=== PATIENT | female | born 1960 | race Caucasian/White ===

== ENCOUNTER 2016-06-12 21:25 | Emergency (ER) | payer OTHER, BC ==
[~2016-06-12] VITALS: Ht 160 cm; Wt 81.6 kg
[2016-06-12 21:25] VITALS: BP 182/103; PULSE 82; RESP 20; TEMP 98.1; O2SAT 99
[~2016-06-12 21:25] MED LIST: CORCR20; LIP20
--- NOTE | 2016-06-12 21:26 | NUR ---
Patient to ER bed 8 to gown for evaluation. Side rails up. Report given to HA MARTIN.
--- NOTE | 2016-06-12 21:35 | NUR ---
Patient to ER C/O left ear pain 7/10 for the past week. Patient states that she is recovering from cold like symptoms for the past week. AAOx4, unlabored rbeathing, no signs of acute distress.
--- NOTE | 2016-06-12 21:40 | NUR ---
KEESHA VERDUGO LEAD ESTHETICIAN at bedside examining patient.
[2016-06-12] MEDS ORDERED: KETOROLAC TROMETHAMINE 30 MG VIAL IVP ONE (22:00)
[2016-06-12] MEDS ORDERED: NACL 0.9% 1,000 ML IV ONE (22:00)
[2016-06-12] MEDS ORDERED: MECLIZINE HCL 25 MG TABLET (ANITVERT) PO ONE (22:00)
[2016-06-12] MEDS ORDERED: ONDANSETRON 4 MG ODT TAB PO ONE (22:00)
--- NOTE | 2016-06-12 22:00 | NUR ---
# 20 gauge angiocath placed to LEFT AC. Use of asceptic technique. Opsite placed over site. Blood return noted. Flushed with 10 cc of normal saline. No evidence of infiltration noted. Patient tolerated well.
[2016-06-12] MEDS ORDERED: AMOXICILLIN/CLAVULANATE POTASSIUM 875 MG TABLET PO ONE (22:15)
--- NOTE | 2016-06-12 22:49 | NUR ---
Patient states that she feels much better. Denies dizziness & nausea. States significant reduction in pain. ER PRODUCTION COUNTER Rebecca sin.
[2016-06-12 23:00] VITALS: BP 145/72; PULSE 69; RESP 17; TEMP 98; O2SAT 100
--- NOTE | 2016-06-12 23:00 | NUR ---
Patient given written and verbal discharge instructions and verbalizes understanding. ER TEACHER OF THE [employer] Rebecca discussed with patient the results and treatment provided. Patient in stable condition. ID arm band removed. IV catheter removed intact and dressing applied, no active bleeding. Rx of zofran, augmentin, meclizine, motrin given. Patient educated on pain management and to follow up with PMD. Pain Scale 0/10. Opportunity for questions provided and answered.
[2016-06-12] MEDS ORDERED: ONDANSETRON 4 MG ODT TAB ONE (23:21)
== END 2016-06-12 23:00 | disposition home or self-care (01) ==
LOC: SED 21:25
DX: H72.92 Unspecified perforation of tympanic membrane, left ear (principal); I10 Essential (primary) hypertension
CPT/HCPCS: 96361; 96374; 99284; J1885; J7030; J8597; Q0162